=== PATIENT | male | born 1990 | race Caucasian/White ===

== ENCOUNTER 2016-10-14 05:30 | Emergency (ER) | payer MEDICAID ==
[2016-10-14] MEDS ORDERED: Ondansetron INJ* 2 MG/ML VIAL IV ONE (06:05)
[2016-10-14] MEDS ORDERED: Ondansetron INJ* 2 MG/ML VIAL ONE ×2 (06:06)
[2016-10-14] MEDS ORDERED: NS 0.9% 1000 ML* 1,000 ML IV ONE (06:26)
--- NOTE | 2016-10-14 06:31 | ED ---
Abdominal Pain/Male - HPI Summary HPI Summary: Patient presents for evaluation of vomiting and diarrhea around midnight. Denies sick contacts, new or bad foods, systemic symptoms. Did feel his limbs cramp up while throwing up which scared him. Vomit is non bloody, non bilious. Diarrhea is watery and nonbloody, nonmucoid. - History of Current Complaint Chief Complaint: EDNauseaVomitDiarrh Stated Complaint: ANXIETY Time Seen by Provider: 10/14/16 05:36 Hx Obtained From: Patient, Family/Family Program Specialist - Girlfriend, EMS Onset/Duration: Gradual Onset - 6 hours Timing: Intermittent Severity Initially: Moderate Severity Currently: Moderate Pain Intensity: 0 Location: Diffuse Radiates: No Character: Cramping Aggravating Factor(s): Nothing Alleviating Factor(s): Nothing Associated Signs And Symptoms: Positive: Nausea, Vomiting, Diarrhea. Negative: Fever, Back Pain, Blood in Stool - Allergies/Home Medications Allergies/Adverse Reactions: Allergies Allergy/AdvReac Type Severity Reaction Status Date / Time No Known Allergies Allergy Verified 10/14/16 05:59 PMH/Surg Hx/FS Hx/Imm Hx Previously Healthy: Yes Psychiatric History: Reports: Hx Anxiety Infectious Disease History: Yes Infectious Disease History: Denies: Traveled Outside the [place] in Last 30 Days - Family History Family History: no cardio vascular issues in family lineage - Social History Alcohol Use: None Substance Use Type: Reports: None Smoking Status (MU): Current Every Day Smoker Type: Cigarettes Amount Used/How Often: 1 ppd Have You Smoked in the Last Year: Yes Review of Systems Negative: Fever, Chills Positive: Vomiting, Diarrhea, Nausea All Other Systems Reviewed And Are Negative: Yes Physical Exam Triage Information Reviewed: Yes Vital Signs On Initial Exam: Initial Vitals Temp Pulse Resp BP Pulse Ox 96.4 F 88 20 123/76 97 10/14/16 05:30 10/14/16 05:30 10/14/16 05:30 10/14/16 05:30 10/14/16 05:30 Vital Signs Reviewed: Yes Appearance: Positive: Well-Appearing, No Pain Distress, Well-Nourished Skin: Positive: Warm, Skin Color Reflects Adequate Perfusion, Dry Head/Face: Positive: Normal Head/Face Inspection Eyes: Positive: Normal, EOMI, YAMIL Neck: Positive: Supple, Nontender Respiratory/Lung Sounds: Positive: Clear to Auscultation, Breath Sounds Present Cardiovascular: Positive: Normal, RRR, Pulses are Symmetrical in both Upper and Lower Extremities Abdomen Description: Positive: Nontender, No Organomegaly, Soft Bowel Sounds: Positive: Present Musculoskeletal: Positive: Normal, Strength/ROM Intact Neurological: Positive: Normal, Sensory/Motor Intact, Alert, Oriented to Person Place, Time, CN Intact II-III, Reflexes Intact Diagnostics - Vital Signs Vital Signs Temp Pulse Resp BP Pulse Ox 10/14/16 06:10 97.4 F 10/14/16 05:57 82 100 10/14/16 05:30 96.4 F 88 20 123/76 97 - Laboratory Lab Statement: Any lab studies that have been ordered have been reviewed, and results considered in the medical decision making process. Abdominal Pain Fem Course/Dx - Diagnoses Differential Diagnosis/HQI/PQRI: Other - Primary concern for viral gastroenteritis. Soft benign abdomen. Well appearing after single dose of zofran. IVF and supportive care for now. PCP FU and prescription for zofran. Provider Diagnoses: Gastroenteritis Discharge - Discharge Plan Condition: Improved Disposition: HOME Prescriptions: Ondansetron TAB* [Zofran Tab*] 4 mg PO Q6H PRN #14 tab MDD 8 tablets PRN Reason: Nausea Patient Education Materials: Gastroenteritis (ED)
[2016-10-14 07:08] VITALS: BP 115/62
== END 2016-10-14 07:23 | disposition home or self-care (01) ==
LOC: ED 05:30
DX: K52.9 Noninfective gastroenteritis and colitis, unspecified (principal); F17.210 Nicotine dependence, cigarettes, uncomplicated
CPT/HCPCS: 96360; 96374; 99283; J2405

== ENCOUNTER 2016-10-17 23:12 | Emergency (ER) | payer MEDICAID ==
[2016-10-18 00:28] LABS: Hematocrit 43 % (42-52); Hemoglobin 14.6 g/dl (14.0-18.0); Mean Corpuscular HGB Conc 34 g/dl (31-36); Mean Corpuscular Hemoglobin 29 pg (27-31); Mean Corpuscular Volume 87 fL (80-94); Mean Platelet Volume 8 um3 (7.4-10.4); Red Blood Count 4.99 10^6/ul (4.0-5.4); Red Cell Distribution Width 14 % (10.5-15); White Blood Count 10.8 10^3/ul (3.5-10.8)
[2016-10-18 00:29] LABS: Calcium 8.8 mg/dL (8.6-10.3); EGFR African American 116.2 (>60); EGFR Non-African American 90.3 (>60); Globulin 2.9 g/dL (2-4); Potassium 3.4 mmol/L (3.5-5.0); Total Bilirubin 0.3 mg/dL (0.2-1.0); Total Protein 6.9 g/dL (6.4-8.9)
--- NOTE | 2016-10-18 01:02 | ED ---
I, Oh,Soemilun, scribed for Thor Romero MD on 10/17/16 at 2348 . Psychiatric Complaint - HPI Summary HPI Summary: This 25 y/o male presents to ED for acute on recurrent panic attack this evening. Pt states that he "almost felt it coming" of his anxiety attack so he woke his girlfriend up and drove to ED. Pt states that his anxiety attack would incapacitate him so that he would sit in toilet sweating for 2 hours. He denies any stress factor that might have triggered today's episode. Pt denies any fever , abd pain, or n/v. Positive MOY. FHx is negative for any CAD. - History Of Current Complaint Chief Complaint: EDMentalHealth Time Seen by Provider: 10/17/16 23:26 Hx Obtained From: Patient, Medical Records Onset/Duration: Sudden Onset, Still Present Timing: Constant Severity Initially: Moderate Severity Currently: Mild Character: Anxious Aggravating Factor(s): Nothing Alleviating Factor(s): Nothing Associated Signs And Symptoms: Positive: Negative - Allergies/Home Medications Allergies/Adverse Reactions: Allergies Allergy/AdvReac Type Severity Reaction Status Date / Time No Known Allergies Allergy Verified 10/14/16 05:59 PMH/Surg Hx/FS Hx/Imm Hx Psychiatric History: Reports: Hx Anxiety Infectious Disease History: No Infectious Disease History: Denies: Traveled Outside the [place] in Last 30 Days - Family History Known Family History: Negative: Cardiac Disease - Social History Alcohol Use: None Hx Substance Use: No Substance Use Type: Reports: None Hx Tobacco Use: Yes Smoking Status (MU): Current Every Day Smoker Type: Cigarettes Amount Used/How Often: 1 ppd Have You Smoked in the Last Year: Yes Review of Systems Positive: Skin Diaphoresis. Negative: Fever Negative: Abdominal Pain, Vomiting, Nausea Positive: Anxious All Other Systems Reviewed And Are Negative: Yes Physical Exam - Summary Physical Exam Summary: General: Comfortable, pleasant, alert HEENT: Moist mucosa Neck: soft, supple, no adenopathy, no edema Heart: S1, S2, RRR, no murmurs, rubs, or gallops Lungs: Clear to auscultation, breathing comfortable, no wheezes or rales Abdominal: Soft, flat, nontender Extremities: No edema, no calf tenderness. No pitting edema. Neuro: Alert and oriented x 3. CN III-XII intact. Negative pronator drift BUE. Negative [place]omberg. Psych: Logical, coherent Triage Information Reviewed: Yes Vital Signs On Initial Exam: Initial Vitals Temp Pulse Resp BP Pulse Ox 98.2 F 83 18 111/62 100 10/17/16 23:14 10/17/16 23:14 10/17/16 23:14 10/17/16 23:14 10/17/16 23:14 Vital Signs Reviewed: Yes Diagnostics - Vital Signs Vital Signs Temp Pulse Resp BP Pulse Ox 10/17/16 23:14 98.2 F 83 18 111/62 100 - Laboratory Lab Results: Lab Results 10/18/16 10/18/16 Range/Units 00:00 00:00 WBC 10.8 (3.5-10.8) 10^3/ul RBC 4.99 (4.0-5.4) 10^6/ul Hgb 14.6 (14.0-18.0) g/dl Hct 43 (42-52) % MCV 87 (80-94) fL MCH 29 (27-31) pg MCHC 34 (31-36) g/dl RDW 14 (10.5-15) % Plt Count 232 (150-450) 10^3/ul MPV 8 (7.4-10.4) um3 Neut % (Auto) 45.1 (38-83) % Lymph % (Auto) 44.4 (25-47) % [place] % (Auto) 7.4 (1-9) % Eos % (Auto) 2.5 (0-6) % Baso % (Auto) 0.6 (0-2) % Absolute Neuts (auto) 4.9 (1.5-7.7) 10^3/ul Absolute Lymphs (auto) 4.8 (1.0-4.8) 10^3/ul Absolute Monos (auto) 0.8 (0-0.8) 10^3/ul Absolute Eos (auto) 0.3 (0-0.6) 10^3/ul Absolute Basos (auto) 0.1 (0-0.2) 10^3/ul Absolute Nucleated RBC 0.01 10^3/ul Nucleated RBC % 0.1 Sodium 136 (133-145) mmol/L Potassium 3.4 L (3.5-5.0) mmol/L Chloride 106 (101-111) mmol/L Carbon Dioxide 27 (22-32) mmol/L Anion Gap 3 (2-11) mmol/L BUN 9 (6-24) mg/dL Creatinine 1.00 (0.67-1.17) mg/dL Est GFR ( Amer) 116.2 (>60) Est GFR (Non-Af Amer) 90.3 (>60) BUN/Creatinine Ratio 9.0 (8-20) Glucose 102 H (70-100) mg/dL Calcium 8.8 (8.6-10.3) mg/dL Total Bilirubin 0.30 (0.2-1.0) mg/dL AST 18 (13-39) U/L ALT 11 (7-52) U/L Alkaline Phosphatase 48 (34-104) U/L Total Protein 6.9 (6.4-8.9) g/dL Albumin 4.0 (3.2-5.2) g/dL Globulin 2.9 (2-4) g/dL Albumin/Globulin Ratio 1.4 (1-3) TSH Pending Result Diagrams: 10/18/16 00:00 10/18/16 00:00 Lab Statement: Any lab studies that have been ordered have been reviewed, and results considered in the medical decision making process. Re-Evaluation - Re-Evaluation First Eval Re-Evaluation Time: 00:57 Change: Unchanged Comment: MD in room to update pt on lab results. Plan of care involving discharge and outpatient f/u via [facility] [place] physician referral is discussed. Pt is agreeable at this time. Course/Dx - Course Assessment/Plan: Pt presents to ED after second episode of having sweating and fear that there is something severely medical clinically wrong with him. Pt was about to have another panic attack, but resolved after talking to his significant other. Pt expresses the fear of having clinical disease, but denies any clinical signs of ischemia, arrythmia, CVA, neurological injury. He mainly reports nausea, anxious feeling, sweating, and hand cramping. There is till quite possible that it is panic attack. Nevertheless, we obtained the electrolyte and full triage, but we found nothing that pt has anything alarming going on. Pt agrees to follow up with [facility] [place] physician referral center for further workup. Other concerns are metabolic derangement or endocrinal d/o. Currently cortisol and TSH is pending. Without elevated bloodwork, I don't believe that thyroid storm is currently occurring. - Differential Dx/Clinical Impression Provider Diagnosis: Panic attack, Diaphoresis - Physician Notifications Discussed Care Of Patient With: [facility] Discharge - Discharge Plan Condition: Stable Disposition: HOME Patient Education Materials: Panic Attack (ED) Referrals: [facility] [place] PHYSICIAN REFERRAL [Outside] - 2 Days The documentation as recorded by the Quentin friedman Soohyun accurately reflects the service I personally performed and the decisions made by me, Thor Romero MD.
[2016-10-18 01:11] LABS: TSH (Thyroid Stimulating Horm) 3.99 mcIU/mL (0.34-5.60)
[2016-10-18 01:26] VITALS: BP 102/65
== END 2016-10-18 01:24 | disposition home or self-care (01) ==
LOC: ED 23:12
DX: F41.0 Panic disorder [episodic paroxysmal anxiety] (principal); R61 Generalized hyperhidrosis; F17.210 Nicotine dependence, cigarettes, uncomplicated; F41.9 Anxiety disorder, unspecified
CPT/HCPCS: 36415; 80053; 82530; 84443; 85025; 99282

== ENCOUNTER 2018-04-18 17:52 | Emergency (ER) | payer MEDICAID ==
--- NOTE | 2018-04-18 18:07 | UC ---
Dental HPI - HPI Summary HPI Summary: 27 yo male presents with right lower dental pain for the past 3 days. He tells me that he knows he has bad teeth and is in the process of scheduling an appt with a dentist. Over the last 3 days has had increasing pain in his right lower tooth. He called a dentist to schedule an appointment and they recommended he be placed on anbx before that appointment. He is able to eat and drink, but says it is significantly painful. Denies fever or chills - History of Current Complaint Stated Complaint: DENTAL COMPLAINT Time Seen by Provider: 04/18/18 18:07 Hx Obtained From: Patient Onset/Duration: Sudden Onset Severity: Severe Pain Intensity: 9 Pain Scale Used: 0-10 Numeric - Allergies/Home Medications Allergies/Adverse Reactions: Allergies Allergy/AdvReac Type Severity Reaction Status Date / Time No Known Allergies Allergy Verified 04/18/18 18:12 Home Medications: Home Medications Sertraline* [Zoloft*] 25 mg PO DAILY 04/18/18 [History Confirmed 04/18/18] Sertraline* [Zoloft*] 100 mg PO DAILY 04/18/18 [History Confirmed 04/18/18] PMH/Surg Hx/FS Hx/Imm Hx - Additional Past Medical History Additional PMH: None Previously Healthy: Yes - Surgical History Surgical History: None - Family History Known Family History: Positive: None Negative: Cardiac Disease Family History: no cardio vascular issues in family lineage - Social History Occupation: Employed Full-time Lives: With Family Alcohol Use: None Substance Use Type: None Smoking Status (MU): Current Every Day Smoker Type: Cigarettes Amount Used/How Often: 1 ppd Have You Smoked in the Last Year: Yes Household Exposure Type: Cigarettes Review of Systems Constitutional: Negative Skin: Negative Eyes: Negative ENT: Dental Pain Respiratory: Negative Cardiovascular: Negative Gastrointestinal: Negative Neurovascular: Negative Neurological: Negative Psychological: Negative All Other Systems Reviewed And Are Negative: Yes Physical Exam - Summary Physical Exam Summary: GENERAL: NAD. WDWN. No pain distress. SKIN: No rashes, sores, lesions, or open wounds. Nose: NTTP maxillary and frontal sinus. Throat: Posterior oropharynx without exudates, erythema, or tonsillar enlargement. Uvula midline. NECK: Supple. Nontender. No lymphadenopathy. CHEST: No accessory muscle use. Breathing comfortably and in no distress. CV: Pulses intact. Brisk cap refill. NEURO: Alert. CN II-XII grossly intact. PSYCH: Age appropriate behavior. Triage Information Reviewed: Yes Vital Signs: Vital Signs: Temp Pulse Resp BP Pulse Ox 97.5 F 92 20 136/77 100 04/18/18 18:07 04/18/18 18:07 04/18/18 18:07 04/18/18 18:07 04/18/18 18:07 Vital Signs Reviewed: Yes Dental: Positive: Percussion Tenderness @ - Tooth 30, Gross Decay/Caries @ - Throughout, Abscess @ - Tooth 30. Negative: Cellulitis @, Cervical Lymphadenopathy, Bleeding Dental Complaint Course/Dx - Course Course Of Treatment: Tooth 30 abscess. iSTOP: Reference #: [id number] - Differential Dx/Diagnosis Provider Diagnoses: Tooth 30 abscess Discharge - Sign-Out/Discharge Documenting (check all that apply): Patient Departure - Discharge Plan Condition: Stable Disposition: HOME Prescriptions: Amoxicillin/Clavulanate TAB* [Augmentin TAB 875*] 875 mg PO BID #14 tab traMADol TAB* [Ultram*] 50 mg PO TID PRN #12 tab MDD 3 PRN Reason: Pain Patient Education Materials: Dental Abscess (ED), Toothache (ED) Referrals: [place] NP [Primary Care Provider] - Additional Instructions: If you develop a fever, shortness of breath, chest pain, new or worsening symptoms - please call your PCP or go to the ED. 1) Please schedule a follow up appointment with a dentist as soon as possible - Billing Disposition and Condition Condition: STABLE Disposition: Home
[2018-04-18 18:11] VITALS: BP 136/77
== END 2018-04-18 18:20 | disposition home or self-care (01) ==
LOC: UCEAST 17:52
DX: K04.7 Periapical abscess without sinus (principal); F17.210 Nicotine dependence, cigarettes, uncomplicated
CPT/HCPCS: 99212; G0463